=== PATIENT | female | born 1945 | race Caucasian/White ===

== ENCOUNTER 2024-12-20 07:07 | Day surgery (SDC) | payer MEDICARE, SELFPAY ==
[2024-12-20] VITALS (32 sets, daily range): BP systolic 83–140; BP diastolic 44–75; PULSE 47–76; RESP 14–18; TEMP 35.6–36.7; O2SAT 92–100; BMI 28.5
--- NOTE | 2024-12-20 07:38 | W.PM.H&PU ---
History & Physical Update History & Physical Update H&P Reviewed and patient assessed: No changes noted
[2024-12-20] MEDS: LACTATED RINGERS 1000 ML 1,000 ML 100 ML IV ×3 (08:00→12:06)
[2024-12-20] MEDS: SODIUM CHLORIDE 0.9 % (FLUSH) 10 ML SYRINGE IVF (08:00)
[2024-12-20] MEDS: ACETAMINOPHEN 500 MG TABLET 1000 MG PO ×3 (08:07→20:00)
[2024-12-20] MEDS: OXYCODONE (CR) 10 MG TAB.ER.12H PO (08:07)
--- NOTE | 2024-12-20 08:27 | SUR.PREOP ---
TIME?OUT:?0827 PT/RN/MDA?VERIFICATION?OF?SURGICAL?SITE,?PROCEDURE,?AND?CONSENT OBTAINED?PRIOR?TO?INVASIVE?PROCEDURE.
[2024-12-20] MEDS: MIDAZOLAM HCL 1 MG/ML inj IVP (08:29)
--- NOTE | 2024-12-20 08:30 | CRLHL7_ITS ---
For Patients: As a result of the Cures Act, medical imaging exams and procedure reports are released immediately into your electronic medical record. You may view this report before your referring provider. If you have questions, please contact your health care provider. Indication: Hip replacement surgery Technique: AP hip fluoroscopic image. Fluoroscopy time 33.0 seconds. Findings/Impression: Hardware from a left total hip arthroplasty is in satisfactory position. Dictated by Blu Segal MD @ 12/20/2024 11:26:04 AM (Electronically Signed)
--- NOTE | 2024-12-20 08:54 | P.NB_ITS ---
Nerve Block Nerve Block Time Seen by Provider: 08:30 Date Seen: 12/20/24 Type of block requested by surgeon for post-operative analgesia: YONG/LFCN Side: left Time out performed: Yes Verification of patient name: Yes Verification of date of : Yes Site marking: site marked Name of person performing procedure: Wilian Continuous monitoring Was continuous monitoring of O2 sat, B/P, commercial airline pilot, recorded every 15 minutes?: Yes Procedure Checklist: sterile prep, needles and gloves Ultrasound guided. Images saved: Yes Medications given in 5ml increments after negative aspiration: Ropivicaine %: 0.5 mL: 30 Needle gauge: 20 Precedex (mcg): 25 Patient tolerated procedure well: Yes Additional comments: Needle noted below psoas tendon needle noted adjacent to LFCN Block Charges Block Charge (with Pro Fee): Other Periph Nerve Block Use of Ultrasound Machine for Block: Yes- US Guidance/pain block
--- NOTE | 2024-12-20 08:55 | P.ANES_ITS ---
Anesthesia Charges Start Date/Time Anesthesia Start Date: 12/20/24 Anesthesia Start Time: 08:58 Stop Date/Time Anesthesia Stop Date: 12/20/24 Anesthesia Stop Time: 11:20 Summary Extremes of Age - Over 70 or under 1: MDA Coding CPT Codes CPT Codes: ANESTH HIP ARTHROPLASTY - 94973 ([id number]) P2 - PATIENT W/MILD SYST DISEASE, QK - WORK OVER RIG OPERATOR 2-4 CNCRNT ANES PROC, QX - SCREEN PRINT OPERATOR SVC W/ MD MED DIRECTION Additional Codes: Summary - Extremes of Age - Over 70 or under 1: MDA ([id number])
--- NOTE | 2024-12-20 08:55 | W.ANESCHARGE ---
Anesthesia Charges Start Date/Time Anesthesia Start Date: 12/20/24 Anesthesia Start Time: 08:58 Stop Date/Time Anesthesia Stop Date: 12/20/24 Anesthesia Stop Time: 11:20 Summary Extremes of Age - Over 70 or under 1: MDA Coding CPT Codes CPT Codes: ANESTH HIP ARTHROPLASTY - 93876 ([id number]) P2 - PATIENT W/MILD SYST DISEASE, QK - TERMINOLOGIST 2-4 CNCRNT ANES PROC, QX - WIND FIELD MANAGER SVC W/ MD MED DIRECTION Additional Codes: Summary - Extremes of Age - Over 70 or under 1: MDA ([id number])
[2024-12-20] MEDS: TRANEXAMIC ACID 100 MG/ML INJ 1000 MG IV (09:15)
--- NOTE | 2024-12-20 09:18 | CRLHL7_ITS ---
For Patients: As a result of the Cures Act, medical imaging exams and procedure reports are released immediately into your electronic medical record. You may view this report before your referring provider. If you have questions, please contact your health care provider. Indication: post op EMIL Left hip Technique: AP hip centered pelvis and lateral view left hip Findings/Impression: Hardware from a left total hip arthroplasty is in satisfactory position. Bone alignment is normal. No sign of acute fracture. Postop changes are within normal limits. Dictated by Blu Segal MD @ 12/20/2024 12:10:05 PM (Electronically Signed)
--- NOTE | 2024-12-20 10:29 | P.ORPRC_ITS ---
Procedure Note Date of procedure: 12/20/24 Procedure: PREOPERATIVE DIAGNOSIS: 1. Left hip osteoarthritis, severe, primary POSTOPERATIVE DIAGNOSIS: 1. Left hip osteoarthritis, severe, primary PROCEDURE: 1. Left total hip arthroplasty-anterior approach 2. 81394 - intraoperative fluoroscopy up to 1 hour. SURGEON: Sukhdeep Alegria MD. BEE ROBBER: Guilherme Moeller PA-C; SATHYA Mojica - Of note, a skilled cashier assistant was critical for this case to aid in patient positioning, tissue retraction, limb manipulation/positioning, dislocation/relocation, patient safety, and closure. ANESTHESIA: Spinal anesthetic EBL: 150 mL IMPLANTS: DePuy J&J uncemented total hip Humphreys cup size 46, hole eliminator, +4 (10?) neutral liner Actis stem, standard offset, size 7 +1.5 mm ceramic 32mm head. COMPLICATIONS: None evident INDICATIONS: The patient is a pleasant 78-year-old female who has experienced severe left hip pain and difficulty bearing weight. Workup included x-rays which revealed severe osteoarthrosis in the hip. Given the deformity, the dysfunction, and the pain, as well as the failure of nonoperative management, recommendation was made for surgery. FINDINGS: Full-thickness chondral loss diffusely throughout the femoral head and acetabulum. Osteophytes around the femoral head/neck junction and perimeter of the acetabulum. Large effusion upon entering the joint. DESCRIPTION OF PROCEDURE: Following a thorough discussion of risks, benefits, and alternatives consent was obtained and the left hip was marked. The patient was brought to the operating room and placed supine on the operating table. Induction of anesthesia was undertaken. 1 g IV Ancef and 1 g tranexamic acid was administered within 1 hr of incision preoperatively. Proper time-out was performed identifying proper patient, site, procedure. The operative extremity was prepped and draped in the appropriate sterile fashion using ChloraPrep after the patient was positioned on the [place] table with head in neutral alignment and all bony prominences well padded. C-arm fluoroscopic imaging was utilized to confirm proper pelvis rotation and position, and to get true AP films of both the contralateral left, and the affected left hip. This is for comparison. A longitudinal incision was made starting approximately 1 cm distal to the ASIS, and 2-3 cm lateral. The incision was extended distally aiming toward the fibular head. Sharp incision through skin and bovie cautery through the subcutaneous tissue allowed identification of the TFL fascia. This was sharply divided, and the fascia bluntly released from the muscle fibers as we dissected medial. Upon coming to the medial border, we were able to retract the TFL laterally, and penetrated the deeper fascia and identify the crossing circumflex vessels. These were ligated/cauterized. The rectus was elevated from the capsule, and retractors placed laterally and medially along the femoral neck to help with visualization of the capsule. We then performed an inverted T capsulotomy. The capsule was tagged for later repair. Retractors were placed inside the capsule. The femoral neck was visualized after releasing medially down to the lesser trochanter, along the saddle laterally, and up onto the acetabulum. The femoral neck cut was made in line with our preoperative templating. The head was removed in a single piece, and sized. We turned our attention to acetabular preparation. Initially, the labrum was resected from around the perimeter, the pulvinar was excised, allowing us to visualize the false wall. We started the reaming with a 43 mm reamer. This was medialized down to the true wall. We then enlarged our reamers sequentially up to one size less than the selected cup size. We trialed at the same size and found it to have an excellent fit. The selected cup was then opened, inserted, and impacted in line with the goal of 40-45? of abduction, and 20-25? of anteversion. This was confirmed on C-arm fluoroscopic imaging to be in the appropriate/goal position. Once the cup was placed we placed a hole eliminator and a liner consistent with preop planning. The 10? additional portion to the +4 liner was placed laterally, of note. Attention was turned to the femoral preparation. The limb was extended, externally rotated, and adducted. The posteromedial capsule was released, as retractors were placed allowing excellent access to the proximal femur. Inbora garcia a box annealer was followed by canal finder followed by various broaches. We broached sequentially up to size noted above, found it to have excellent rotational control, and trialing various heads and necks, revealed that appropriate neck offset, and the above noted head size provided the greatest stability, and restorationist of length, and offset. C-arm fluoroscopic imaging confirmed position of the stem, as well as leg lengths, which were compared with the pre procedure all fluoroscopic images. Trial implants were removed, the real femoral stem inserted, as was the ceramic head. After reducing, the leg was placed through range of motion and stability was confirmed anterior, posterior, and lateral. A 3 min Betadine soak was then performed, and thorough irrigation with normal saline followed. Closure of the capsule was performed with #1 PDS. Bleeding was confirmed to be controlled at this stage, and the TFL fascia was closed with #0 strata fix. Subcutaneous, and subcuticular closure was performed with 2-0 Stratafix and 4-0 Stratafix, respectively. Dressings were applied, and the patient was awoken from anesthesia and transferred the PACU in stable condition. A skilled cashier assistant was critical for this case to aid in patient positioning, tissue retraction, proximal femur exposure, limb manipulation/positioning, dislocation/relocation, patient safety, and closure. PLAN: 1. Weight bear as tolerated operative extremity. 2. 23 hr perioperative antibiotics. 3. Ice. 4. PT/OT consults for ambulation assistance/mobility education. 5. Social work consult for discharge planning. 6. DVT prophylaxis with at SCDs and Xarelto x5 days followed by aspirin for a total of 1 month.
--- NOTE | 2024-12-20 11:22 | P.ANES_ITS ---
Anesthesia Charges Start Date/Time Anesthesia Start Date: 12/20/24 Anesthesia Start Time: 08:58 Stop Date/Time Anesthesia Stop Date: 12/20/24 Anesthesia Stop Time: 11:20 Summary Extremes of Age - Over 70 or under 1: GROUNDS KEEPER Coding CPT Codes CPT Codes: ANESTH HIP ARTHROPLASTY - 17556 ([id number]) P2 - PATIENT W/MILD SYST DISEASE, QK - PROGRAM COORDINATOR EXECUTIVE EDUCATION 2-4 CNCRNT ANES PROC, QX - GROUNDS KEEPER SVC W/ MD MED DIRECTION Additional Codes: Summary - Extremes of Age - Over 70 or under 1: GROUNDS KEEPER ([id number])
--- NOTE | 2024-12-20 11:22 | W.ANESCHARGE ---
Anesthesia Charges Start Date/Time Anesthesia Start Date: 12/20/24 Anesthesia Start Time: 08:58 Stop Date/Time Anesthesia Stop Date: 12/20/24 Anesthesia Stop Time: 11:20 Summary Extremes of Age - Over 70 or under 1: INVERTED BLOCK OPERATOR Coding CPT Codes CPT Codes: ANESTH HIP ARTHROPLASTY - 13154 ([id number]) P2 - PATIENT W/MILD SYST DISEASE, QK - SHIRT OPERATOR 2-4 CNCRNT ANES PROC, QX - INVERTED BLOCK OPERATOR SVC W/ MD MED DIRECTION Additional Codes: Summary - Extremes of Age - Over 70 or under 1: INVERTED BLOCK OPERATOR ([id number])
[2024-12-20] MEDS: PHENYLEPHRINE 100 MCG/ML SYRINGE IVP ×2 (11:32→11:47)
[2024-12-20] MEDS: LACTATED RINGERS 1000 ML 1,000 ML 75 ML IV (12:40)
[2024-12-20] MEDS: CEFAZOLIN 1 GM in 0.9 % SODIUM CHLORIDE Mini-bag 100 ML IVPB ×2 (15:26→23:16)
--- NOTE | 2024-12-20 15:46 | P.IMCN_ITS ---
Date of Consult Consult date: 12/20/24 Requesting Physician: Orthopedics Primary Care Provider: Rylan Canas MD Consult Narrative Reason for consult: post-op management Narrative: HOSPITALIST CONSULT Procedure: PROCEDURE: Left total hip arthroplasty-anterior approach SURGEON: Sukhdeep Alegria MD. ANESTHESIA: Spinal anesthetic EBL: 150 mL COMPLICATIONS: None evident The hospital medicine team was asked by the orthopedic surgery team to manage the patient's post-op recovery and chronic medical conditions related to her thyroid disease, hx of blood clots and hx of prediabetes. There have been no perioperative complications. I have updated and reviewed the active medical problems, past medical history, past surgical history, social history, allergies and medications in our electronic EMR. This includes a cross reference to care everywhere in [facility] and with [facility] databases. PHYSICAL EXAM: CODE STATUS: FULL CODE CONSTITUTIONAL: Conversive, good historian. A/O. Knows setting and context. VITAL SIGNS: see record. HEENT: Normocephalic, atraumatic. PERRL, EOMI, conjunctivae pink, no scleral icterus. Ears and nose externally normal. Pharynx normal. NECK: No JVD. No carotid bruit, no thyromegaly, no adenopathy. CHEST: Clear to auscultation bilaterally HEART: S1 and S2 normal. ABDOMEN: Flat, soft, nontender. Normal bowel sounds. Moderately obese. EXTREMITIES: No edema. MUSCULOSKELETAL: Left anterior approach surgical dressing is C/D/I. NEURO: Cranial nerves intact. Mentation normal. Normal affect. SKIN: No rashes, petechiae, concerning changes PSYCHIATRIC: Mentation normal. INVESTIGATIONS: EMR Reviewed; Pre-OP Reviewed DISPOSITION: DVT: Agree with Ortho team decision GI: PO intake [facility] Medical History (Updated 12/20/24 @ 15:52 by Bethany Cuello MD) History of DVT (deep vein thrombosis) ?Z86.718 - Personal history of other venous thrombosis and embolism (ICD-10) Osteoarthritis of right hip ?M16.11 - Unilateral primary osteoarthritis, right hip (ICD-10) Community acquired pneumonia of right middle lobe of lung ?J18.9 - Pneumonia, unspecified organism (ICD-10) Ingrown toenail of left foot ?L60.0 - Ingrowing nail (ICD-10) Elevated blood pressure reading without diagnosis of hypertension ?R03.0 - Elevated blood-pressure reading, without diagnosis of hypertension (ICD-10) Asymptomatic postmenopausal state ?Z78.0 - Asymptomatic menopausal state (ICD-10) Right calf pain ?M79.661 - Pain in right lower leg (ICD-10) Hyperopia of both eyes with astigmatism and presbyopia ?H52.03 - Hypermetropia, bilateral (ICD-10) ?H52.203 - Unspecified astigmatism, bilateral (ICD-10) ?H52.4 - Presbyopia (ICD-10) Nuclear senile cataract of both eyes ?H25.13 - Age-related nuclear cataract, bilateral (ICD-10) Nipple discharge in female ?N64.52 - Nipple discharge (ICD-10) Prediabetes ?R73.03 - Prediabetes (ICD-10) Nontoxic uninodular goiter ?E04.1 - Nontoxic single thyroid nodule (ICD-10) Osteopenia ?M85.80 - Other specified disorders of bone density and structure, unspecifi ed site (ICD-10) Hypothyroidism ?E03.9 - Hypothyroidism, unspecified (ICD-10) Surgical History (Updated 12/20/24 @ 15:51 by Bethany Cuello MD) History of lumpectomy of left breast ?Z98.890 - Other specified postprocedural states (ICD-10) S/P total left hip arthroplasty ?Z96.642 - Presence of left artificial hip joint (ICD-10) History of right hip replacement (11/11/04) ?Z96.641 - Presence of right artificial hip joint (ICD-10) Family History (Updated 11/16/24 @ 14:26 by Zulema Alfonso ~ [facility], [facility]) Mother Colon cancer Sister Lung cancer Other Diabetes High blood pressure Myocardial infarction Stroke Social History (Updated 11/16/24 @ 14:26 by Zulema Alfonso ~ [facility], [facility]) What is your current living situation?: I presently have a place to live Problems where you live: no known problems In the past 12 months, utilities in danger of being shut off: no In past 12 months, lack of transportation kept you from medical appts, meetings, work, or getting things needed for daily living: no In the past 12 mos, have been you worried that your food would run out before you had money to buy more?: never true In the past 12 mos, the food you bought just didn't last and you didn't have m oney to buy more?: never true Smoking Status: Never smoker Do you use any of these nicotine containing products: None Second hand tobacco smoke exposure: No How often do you have a drink containing alcohol: never AUDIT-C Alcohol total score: 0 Non-prescribed substance use: denies use Caffeine: Yes How often does anyone, including family, friends and others, physically hurt you : never How often does anyone, including family, friends and others, insult or talk down to you: never How often does anyone, including family, friends and others, threaten you with harm: never How often does anyone, including family, friends and others, scream or curse at you: never Meds Home Medications and Allergies Home Medications ?Medication ?Instructions ?Recorded ?Confirmed ?Type cholecalciferol (vitamin D3) 50 50 mcg PO DAILY 12/20/24 History mcg (2,000 unit) capsule (Vitamin D3) levothyroxine 88 mcg capsule 88 mcg PO DAILY 11/16/24 12/20/24 History magnesium 250 mg tablet 250 mg PO DAILY 11/16/24 History omega 3-rqm-tnd-fish oil 100 1 cap PO DAILY 11/16/24 0 12/20/24 History mg-160 mg-1,000 mg capsule (Fish Oil) acetaminophen 500 mg capsule 500 - 1,000 mg (1 - 2 x 5 00 mg) PO 12/20/24 Rx Q6H PRN #100 caps aspirin 81 mg tablet,delayed 81 mg PO BID #50 tabs Rx release oxycodone 5 mg tablet 2.5 - 5 mg (0.5 - 1 x 5 mg) PO 12/20/24 Rx Q4-6H PRN pain #42 tabs rivaroxaban 10 mg tablet 10 mg PO DAILY #4 tabs 12/20 Rx sennosides 8.6 mg-docusate sodium 1 - 4 tab-cap (1 - 4 x 8.6-50 mg) 12/20/24 Rx 50 mg tablet (Senna-S) PO BID PRN constipation #60 tabs Allergies Allergy/AdvReac Type Severity Reaction Status Date / Time doxycycline Allergy Rash Verified 12/05/24 14:28 latex Allergy Rash Verified 12/05/24 14:28 Exam Const: Vital Signs, click to edit/add: Vital Signs - 24 hr 12/20/24 08:01 12/20/24 08:29 12/20/24 08:35 Temperature 98.0 F Pulse Rate 63 61 59 L Pulse Rate [Right Pulse Oximeter] Respiratory Rate 16 16 14 Blood Pressure 140/64 H 137/75 111/66 Blood Pressure [Le ft Arm] Pulse Oximetry 97 99 99 Oxygen Delivery Me thod Room Air Nasal Cannula Nasal Cannula Oxygen Flow Rate 3 3 12/20/24 08:40 12/20/24 08:45 12/20/24 08:50 Temperature Pulse Rate 58 L 55 L 55 L Pulse Rate [Right Pulse Oximeter] Respiratory Rate 14 14 14 Blood Pressure 98/51 L 91/49 L 89/50 L Blood Pressure [Le ft Arm] Pulse Oximetry 99 99 99 Oxygen Delivery Me thod Nasal Cannula Nasal Cannula Nasal Cannula Oxygen Flow Rate 3 3 3 12/20/24 08:54 12/20/24 11:16 12/20/24 11:19 Temperature 97.3 F L Pulse Rate 58 L 51 L Pulse Rate [Right Pulse Oximeter] Respiratory Rate 14 18 Blood Pressure 87/44 L 87/54 L 112/62 Blood Pressure [Le ft Arm] Pulse Oximetry 98 96 Oxygen Delivery Me thod Nasal Cannula Room Air Oxygen Flow Rate 3 12/20/24 11:25 12/20/24 11:30 12/20/24 11:35 Temperature Pulse Rate 55 L 55 L 49 L Pulse Rate [Right Pulse Oximeter] Respiratory Rate 16 16 16 Blood Pressure 96/48 L 83/47 L 115/66 Blood Pressure [Le ft Arm] Pulse Oximetry 96 94 96 Oxygen Delivery Me thod Oxygen Flow Rate 12/20/24 11:40 12/20/24 11:45 12/20/24 11:50 Temperature Pulse Rate 51 L 50 L 58 L Pulse Rate [Right Pulse Oximeter] Respiratory Rate 16 16 17 Blood Pressure 93/56 L 90/51 L 129/66 Blood Pressure [Le ft Arm] Pulse Oximetry 97 96 99 Oxygen Delivery Me thod Oxygen Flow Rate 12/20/24 11:55 12/20/24 12:00 12/20/24 12:05 Temperature Pulse Rate 53 L 47 L 50 L Pulse Rate [Right Pulse Oximeter] Respiratory Rate 18 16 18 Blood Pressure 99/51 L 89/65 L 100/54 L Blood Pressure [Le ft Arm] Pulse Oximetry 99 98 98 Oxygen Delivery Me thod Oxygen Flow Rate 12/20/24 12:10 12/20/24 12:20 12/20/24 12:30 Temperature 97.4 F L 96.1 F L 96.0 F L Pulse Rate 52 L Pulse Rate [Right Pulse Oximeter] 50 L 47 L Respiratory Rate 16 16 16 Blood Pressure 100/55 L Blood Pressure [Le ft Arm] 107/61 110/59 L Pulse Oximetry 100 100 100 Oxygen Delivery Me thod Room Air Room Air Room Air Oxygen Flow Rate 12/20/24 12:45 12/20/24 13:00 12/20/24 13:15 Temperature 96.2 F L 96.2 F L Pulse Rate Pulse Rate [Right Pulse Oximeter] 49 L 53 L 52 L Respiratory Rate 16 14 Blood Pressure Blood Pressure [Le ft Arm] 93/71 98/59 L 99/57 L Pulse Oximetry 100 100 96 Oxygen Delivery Me thod Room Air Blow By Room Air Oxygen Flow Rate 3 12/20/24 13:30 Temperature 96.4 F L Pulse Rate Pulse Rate [Right Pulse Oximeter] 56 L Respiratory Rate 16 Blood Pressure Blood Pressure [Le ft Arm] 98/55 L Pulse Oximetry 92 Oxygen Delivery Me thod Blow By Oxygen Flow Rate Assessment and Plan Assessment and plan (1) S/P total left hip arthroplasty: Problem comment: Dr. Denson, 12/20/24 Hospital medicine team is happy to follow the patient through to discharge. We are expecting a routine postoperative course. I have reconciled home medications and completed our part of the discharge. Status: Acute (2) History of DVT (deep vein thrombosis): Problem comment: Pt. believes she had RLE DVT following childbirth (1977) Xarelto, b.i.d. aspirin per protocol is appropriate Status: Acute (3) Prediabetes: Problem comment: -last A1C in November 2024 was 5.9 -does not need Accu-Cheks overnight Status: Acute (4) Hypothyroidism: Problem comment: -continue home dose levothyroxine Status: Acute
--- NOTE | 2024-12-20 18:37 | PC.NURSE ---
End of Shift ([id number]):Patient pleasant and cooperative, A&O. Slightly bradycardic this shift, asymptomatic, all other VSS, afebrile. SpO2 maintained above 90% on RA when awake. When patient was?asleep immediately after surgery, she required blow by O2 to maintain SpO2 > 90%. Patient reports pain in her left hip this shift, managed with scheduled and PRN medication, see MAR. Dressing to left hip C/D/I. CMS intact. Tolerating regular diet, denies nausea. 1A with walker and gait belt. Patient appears to be resting in the chair, call light within reach. ?
[2024-12-20] MEDS: SENNOSIDES 1 TAB TABLET 2 TAB PO (20:36)
[2024-12-21 02:31] VITALS: BP 112/55; RESP 16; TEMP 36.7; O2SAT 97
[2024-12-21] MEDS: ACETAMINOPHEN 500 MG TABLET 1000 MG PO ×2 (02:49→08:31)
[2024-12-21 07:40] VITALS: BP 117/59; PULSE 68; RESP 16; O2SAT 95
[2024-12-21 07:45] VITALS: PULSE 68; RESP 16; O2SAT 96
[2024-12-21] MEDS: SENNOSIDES 1 TAB TABLET 2 TAB PO (08:31)
[2024-12-21] MEDS: RIVAROXABAN 10 MG TABLET PO (08:31)
--- NOTE | 2024-12-21 09:15 | P.ORPN_ITS ---
Subjective Subjective Date Seen: 12/21/24 Principal diagnosis: Status postop day 1, left total hip arthroplasty - anterior approach Interval history: Patient reports doing okay; pain difficult in the evening, feeling tender throughout the left thigh/hip/lower back and tail bone. No acute events over night. Pain managed with scheduled and PRN medications, ice. DVT prophylaxis: Rivaroxaban, SCDs, walking. Denies fevers, chills, aches, N/V, CP, SOB/BEARD, or lightheadedness. Passing flatus. Ortho Exam Narrative Exam Narrative: -Patient appears comfortable in recliner; no apparent acute distress. Family present. Eating breakfast. -Alert and oriented times 3 -Operative hip swollen; soft tissues supple; no obvious erythema. Ecchymosis minimal. Warmth appropriate -Surgical dressing clean, dry, intact; no obvious drainage, no erythematous streaking peripheral to the bandage -Bilateral calves soft and supple; no significant swelling, edema, tenderness, e rythema, discoloration, warmth, or palpable cords -2+ DP/PT pulses, intact dermatomes and myotomes distally (5/5 strength). No numbness about the lateral femoral cutaneous nerve distribution. Const Vital Signs, click to edit/add: Vital Signs - 24 hr 12/20/24 11:16 12/20/24 11:19 12/20/24 11:25 Temperature 97.3 F L Pulse Rate 51 L 55 L Pulse Rate [Right Pulse Oximeter] Respiratory Rate 18 16 Blood Pressure 87/54 L 112/62 96/48 L Blood Pressure [Left Arm] Pulse Oximetry 96 96 Oxygen Delivery Method Room Air Oxygen Flow Rate 12/20/24 11:30 12/20/24 11:35 12/20/24 11:40 Temperature Pulse Rate 55 L 49 L 51 L Pulse Rate [Right Pulse Oximeter] Respiratory Rate 16 16 16 Blood Pressure 83/47 L 115/66 93/56 L Blood Pressure [Left Arm] Pulse Oximetry 94 96 97 Oxygen Delivery Method Oxygen Flow Rate 12/20/24 11:45 12/20/24 11:50 12/20/24 11:55 Temperature Pulse Rate 50 L 58 L 53 L Pulse Rate [Right Pulse Oximeter] Respiratory Rate 16 17 18 Blood Pressure 90/51 L 129/66 99/51 L Blood Pressure [Left Arm] Pulse Oximetry 96 99 99 Oxygen Delivery Method Oxygen Flow Rate 12/20/24 12:00 12/20/24 12:05 12/20/24 12:10 Temperature 97.4 F L Pulse Rate 47 L 50 L 52 L Pulse Rate [Right Pulse Oximeter] Respiratory Rate 16 18 16 Blood Pressure 89/65 L 100/54 L 100/55 L Blood Pressure [Left Arm] Pulse Oximetry 98 98 100 Oxygen Delivery Method Room Air Oxygen Flow Rate 12/20/24 12:20 12/20/24 12:30 12/20/24 12:45 Temperature 96.1 F L 96.0 F L 96.2 F L Pulse Rate Pulse Rate [Right Pulse Oximeter] 50 L 47 L 49 L Respiratory Rate 16 16 16 Blood Pressure Blood Pressure [Left Arm] 107/61 110/59 L 93/71 Pulse Oximetry 100 100 100 Oxygen Delivery Method Room Air Room Air Room Air Oxygen Flow Rate 12/20/24 13:00 12/20/24 13:15 12/20/24 13:30 Temperature 96.2 F L 96.4 F L Pulse Rate Pulse Rate [Right Pulse Oximeter] 53 L 52 L 56 L Respiratory Rate 14 16 Blood Pressure Blood Pressure [Left Arm] 98/59 L 99/57 L 98/55 L Pulse Oximetry 100 96 92 Oxygen Delivery Method Blow By Room Air Blow By Oxygen Flow Rate 3 12/20/24 14:00 12/20/24 15:00 12/20/24 15:00 Temperature 96.4 F L 97.1 F L Pulse Rate Pulse Rate [Right Pulse Oximeter] 54 L 54 L Respiratory Rate 16 16 16 Blood Pressure Blood Pressure [Left Arm] 100/55 L 93/53 L Pulse Oximetry 99 98 98 Oxygen Delivery Method Room Air Room Air Room Air Oxygen Flow Rate 12/20/24 15:00 12/20/24 16:00 12/20/24 17:00 Temperature 96.5 F L Pulse Rate Pulse Rate [Right Pulse Oximeter] 55 L 55 L 58 L Respiratory Rate 16 16 Blood Pressure Blood Pressure [Left Arm] 107/62 121/57 L Pulse Oximetry 99 99 Oxygen Delivery Method Room Air Room Air Oxygen Flow Rate 12/20/24 18:00 12/20/24 19:43 12/20/24 23:00 Temperature 98.0 F 98.1 F 97.4 F L Pulse Rate Pulse Rate [Right Pulse Oximeter] 76 64 66 Respiratory Rate 16 16 16 Blood Pressure Blood Pressure [Left Arm] 98/57 L 111/59 L 128/63 Pulse Oximetry 98 98 96 Oxygen Delivery Method Room Air Room Air Oxygen Flow Rate 12/20/24 23:00 12/20/24 23:00 12/21/24 02:31 Temperature 98.1 F Pulse Rate Pulse Rate [Right Pulse Oximeter] 66 Respiratory Rate 16 16 Blood Pressure Blood Pressure [Left Arm] 112/55 L Pulse Oximetry 97 Oxygen Delivery Method Room Air Room Air Oxygen Flow Rate Assessment and Plan Assessment and plan (1) S/P total left hip arthroplasty: Problem details: Dr. Denson, 12/20/24 Hospital medicine team is happy to follow the patient through to discharge. We are expecting a routine postoperative course. I have reconciled home medications and completed our part of the discharge. Status: Acute (2) History of DVT (deep vein thrombosis): Problem details: Pt. believes she had RLE DVT following childbirth (1977) Xarelto, b.i.d. aspirin per protocol is appropriate Status: Acute (3) Prediabetes: Problem details: -last A1C in November 2024 was 5.9 -does not need Accu-Cheks overnight Status: Acute (4) Hypothyroidism: Problem details: -continue home dose levothyroxine Status: Acute Plan - Complete 23 hour perioperative antibiotics. - PT/OT consult for education and assistance. - Social work consult for discharge planning - Prescribed analgesics as needed - DVT prophylaxis: 5 days rivaroxaban followed by 25 days 81 mg aspirin by mouth twice daily, walking, and SCDs - Anticipation is for discharge to home with family/friends today 12/21/2024 if the patient remains medically stable, pain is controlled, and they are safe with mobilization.
[2024-12-21 11:00] VITALS: BP 116/57; PULSE 63; RESP 16; O2SAT 97
--- NOTE | 2024-12-21 11:59 | PC.NURSE ---
Nursing Care Hours: [id number] Pt this shift calm and cooperative, alert and oriented x4. Pain managed with PO meds and ice. Discussed pain management for home. VSS, CMS intact. IV removed for discharge. Pt wheeled out to vehicle in stable condition. All questions and concerns addressed.
== END 2024-12-21 11:39 | disposition home or self-care (01) ==
LOC: OR 07:08 → MEDSURG 07:08
PROVIDERS: PCP Family Medicine; Visit Provider Orthopaedic Surgery Sports Medicine
PROC: (CPT 27130; principal; 2024-12-20 08:30)
DX: M16.12 Unilateral primary osteoarthritis, left hip (principal); G89.18 Other acute postprocedural pain; R73.03 Prediabetes; Z86.718 Personal history of other venous thrombosis and embolism; Z79.01 Long term (current) use of anticoagulants; Z79.82 Long term (current) use of aspirin; M85.80 Other specified disorders of bone density and structure, unspecified site; E03.9 Hypothyroidism, unspecified
CPT/HCPCS: 27130; 01214; 36415; 64450; 73501; 76000; 76942; 86850; 86900; 86901; 97110; 97116; 97161; 97165; 97530; 97535; 99100; A9270; C1776; J0690; J1100; J1171; J2250; J2371; J2405; J2704; J2795; J3010; J7120